=== PATIENT | male | born 1960 | race Caucasian/White ===

== ENCOUNTER 2018-11-29 11:48 | Emergency (ER) | payer MEDICAID ==
[~2018-11-29] VITALS: Ht 172.7 cm; Wt 85.0 kg
[2018-11-29] MEDS ORDERED: FLUORESCEIN SODIUM 1MG/STRIP LEFTEYE ONE (12:30)
[2018-11-29] MEDS ORDERED: TETRACAINE 0.5% OPHTH DROPS 4ML LEFTEYE ONE (12:30)
[2018-11-29 13:29] VITALS: BP 133/87
== END 2018-11-29 13:28 | disposition home or self-care (01) ==
LOC: ER 12:33
DX: H57.12 Ocular pain, left eye (principal); W22.8XXA Striking against or struck by other objects, initial encounter; Y93.89 Activity, other specified; Y92.89 Other specified places as the place of occurrence of the external cause; Y99.8 Other external cause status
CPT/HCPCS: 99283